=== PATIENT | male | born 1945 | race Two or more races ===

== ENCOUNTER 2020-02-09 05:49 | Day surgery (SDC) | payer OTHER | END 2020-02-09 09:20 | disposition home or self-care (01) | LOC: AMB-ENDOS 05:49 | PROVIDERS: ATTEND Colon & Rectal Surgery | DX: D12.0 Benign neoplasm of cecum (principal); D12.2 Benign neoplasm of ascending colon; D12.8 Benign neoplasm of rectum; K64.1 Second degree hemorrhoids; Z20.828 Contact with and (suspected) exposure to other viral communicable diseases ==

== ENCOUNTER 2021-04-18 06:20 | Day surgery (SDC) | payer OTHER | END 2021-04-18 12:20 | disposition home or self-care (01) | LOC: AMB-ENDOS 06:20 | PROVIDERS: ATTEND Colon & Rectal Surgery | DX: K63.5 Polyp of colon (principal); K64.2 Third degree hemorrhoids ==